=== PATIENT | male | born 1945 | race Caucasian/White ===

== ENCOUNTER 2019-02-18 20:15 | Emergency (ER) | payer MEDICARE, OTHER ==
[~2019-02-18] VITALS: Ht 170.2 cm; Wt 77.4 kg
[2019-02-18 23:20] VITALS: BP 127/74
== END 2019-02-18 23:00 | disposition short-term general hospital (02) ==
LOC: ED 21:35 → UNDOADMIN 22:03 → EDIP 22:03
DX: R09.2 Respiratory arrest (principal); J69.0 Pneumonitis due to inhalation of food and vomit; J15.9 Unspecified bacterial pneumonia; R23.0 Cyanosis; G20 Parkinson's disease
CPT/HCPCS: 36415; 71045; 80048; 82040; 85025; 87040; 93005; 96365; 96368; 99291; J0295; J0456; J7050; 82962

== ENCOUNTER → 2020-10-18 | Outpatient (CLI) | payer MEDICARE, OTHER ==
[~2020-10-18] MED LIST: CARB1TAB13 PO; CARB1TAB5 PO; DONE5TAB52 PO; DULO20CA45 PO; OMNIPAQUE 350 MG/ML, 100ML BOTTLE ONE; PRAM1TAB5 PO; RASA1TAB2 PO
== END | disposition home or self-care (01) ==
LOC: CFH 15:19
PROVIDERS: ATTEND Psychiatry & Neurology Neurology
DX: G31.83 Neurocognitive disorder with Lewy bodies (principal); G31.89 Other specified degenerative diseases of nervous system; F02.80 Dementia in other diseases classified elsewhere, unspecified severity, without behavioral disturbance, psychotic disturbance, mood disturbance, and anxiety
CPT/HCPCS: 70470; 82565; Q9967